=== PATIENT | male | born 1985 | race Caucasian/White ===

== ENCOUNTER 2020-01-09 23:47 | Emergency (ER) | payer SELFPAY ==
[~2020-01-09] VITALS: Ht 180.3 cm; Wt 68.2 kg
[2020-01-09 23:47] VITALS: BP 121/67
--- NOTE | 2020-01-09 23:52 | PHYS DOC ---
Past History Past Medical History: Alcoholism, Anxiety, Bipolar Smoking: Cigarettes Alcohol Use: Heavy Drug Use: Marijuana General Adult HPI: HPI: "....What the fuck I am here for.. yes I ve been fucking drinking.. maybe some other shit.. What the fuck am I here for... If you make me stay will fucking ..... You can't make me stay..... I did say.. I was fucking depressed .. and said some fucking things.. I not going to do anything..I don't need to be arrested for being drunk.. [facility]...I don't want any fucking work up... I have a right to refuse...treatment... Just to haul some one off to the hospital .. is no legal... I not going to get any blood draws.... this is fucking bull shit.. can't fucking person get drunk in this [facility] town.. I just want go home.. call me a cab.. or I will call a friend to [place] pick me up.. you mother fucking pussies.. Patient is a 34 year old male who presents with above hx and complaints of being held against his will for being intoxicated. Pt. PD referral for intoxication and aggressive threats. Patient does admit to past threats and depression. Patient denies any suicidal ideation. Denies any suicidal plan. The patient does admit the past diagnosis of bipolar, anxiety, alcohol abuse. Patient states he was up here partying in [place]. Patient is from [facility]. Pt. admits to making threats, but states he is just mad about being detained by the Police, and being brought to ED against his will. Review of Systems: Review of Systems: Constitutional: Denies fever or chills Eyes: Denies change in visual acuity HENT: Denies nasal congestion or sore throat Respiratory: Denies cough or shortness of breath Cardiovascular: Denies chest pain or edema GI: Denies abdominal pain, nausea, vomiting, bloody stools or diarrhea : Denies dysuria Musculoskeletal: Denies back pain or joint pain Integument: Denies rash Neurologic: Denies headache, focal weakness or sensory changes Endocrine: Denies polyuria or polydipsia Lymphatic: Denies swollen glands Psychiatric: Complalints of anxiety Pt. denies suicidal ideation or homicidal ideation Heart Score: Risk Factors: Risk Factors: DM, Current or recent (<one month) smoker, HTN, HLP, family history of CAD, obesity. Risk Scores: Score 0 - 3: 2.5% MACE over next 6 weeks - Discharge Home Score 4 - 6: 20.3% MACE over next 6 weeks - Admit for Clinical Observation Score 7 - 10: 72.7% MACE over next 6 weeks - Early Invasive Strategies Family History: Family History: Patient refused family history Current Medications: Current Meds: Patient refused to give medicine history Allergies: Allergies: Patient denies any drug allergies Physical Exam: PE: Constitutional: in acute emotional distress,appearance of alcohol intoxication HENT: Normocephalic, atraumatic, bilateral external ears normal, oropharynx moist, no oral exudates, nose normal. [] Eyes: PERRLA, EOMI, conjunctiva injected, no discharge. [] Neck: Normal range of motion, no tenderness, supple, no stridor. [] Cardiovascular:Heart rate regular rhythm, no murmur [] Lungs & Thorax: Bilateral breath sounds equal at apexes with few wheezes on auscultation [] Abdomen: Bowel sounds normal, soft, no tenderness, no masses, no pulsatile masses. [] Skin: Warm, dry, no erythema, no rash. [] Back: No tenderness, no CVA tenderness. [] Extremities: No tenderness, no cyanosis, no clubbing, ROM intact, no edema. [] Neurologic: Alert and oriented X 3, moves all extremities on request has distal sensory, no focal deficits noted. Ambulatory with out problems. Psychologic: Affect angry, judgement questionable, but interactive, argumentative,, mood agitated. Admits to alcohol intoxication. Denies suicidal ideation denies homicidal ideation Current Patient Data: Labs: Patient refuses labs EKG: EKG: Patient refuses EKG [] Radiology/Procedures: Radiology/Procedures: Patient refuses x-rays [] Course & Med Decision Making: Course & Med Decision Making Pertinent Labs and Imaging studies reviewed. (See chart for details) Patient refuses any labs, evaluation, begged patient to allow us to get some baseline labs on him until he ride arrived. Patient refused all medical procedures. Patient refused everything. . Patient left AMA. Pt. on his phone attempting to call friends and family to come and pick him up. Begged pt. to stay and at completed further eval. Pt. hector angry he was detained by the krista ramirez and then transported to ED. Pt. admits to making suicide threats to avoid arrest for causing a public disturbance. States he has no plan to hurt himself. States he just want to call his friends or family to come and pick him up. Impression: 1. Appearance of Alcohol Intoxication, and by Pt. admission 2. Pt. refuses all labs and evaluation Begged pt. to stay. Pt. left - ambulatory with out problems. [] Dragon Disclaimer: Dragon Disclaimer: This electronic medical record was generated, in whole or in part, using a voice recognition dictation system. Departure Departure: Disposition: 01 HOME/RESIDENCE PRIOR TO ADM Condition: STABLE Dragon Disclaimer This chart was dictated in whole or in part using Voice Recognition software in a busy, high-work load, and often noisy Emergency Department environment. It may contain unintended and wholly unrecognized errors or omissions. AMISH DAVEY MD Jan 09, 2020 23:52
[2020-01-10] MEDS ORDERED: IV RINGERS SOLUTION,LACTATED 1,000 ML IV SCH (00:15)
== END 2020-01-10 00:15 | disposition left against medical advice (07) ==
LOC: ER 23:47
DX: F10.229 Alcohol dependence with intoxication, unspecified (principal); F41.9 Anxiety disorder, unspecified; F17.210 Nicotine dependence, cigarettes, uncomplicated; F12.10 Cannabis abuse, uncomplicated; F31.9 Bipolar disorder, unspecified; Y90.9 Presence of alcohol in blood, level not specified
CPT/HCPCS: 93005; 99283